=== PATIENT | male | born 1965 | race Caucasian/White ===

== ENCOUNTER 2025-05-26 08:42 | Outpatient (CLI) | payer BC, SELFPAY ==
--- NOTE | 2025-05-26 10:02 | P.ANES_ITS ---
Anesthesia Charges Start Date/Time Anesthesia Start Date: 05/26/25 Anesthesia Start Time: 09:37 Stop Date/Time Anesthesia Stop Date: 05/26/25 Anesthesia Stop Time: 10:01 Coding CPT Codes CPT Codes: MADDIE LWR INTST NDSC NOS - [id number] ([id number]) P2 - PATIENT W/MILD SYST DISEASE, QK - DISINTEGRATOR 2-4 CNCRNT ANES PROC, QX - DIRECTOR OF ENTERPRISE STRATEGY SVC W/ MD MED DIRECTION
--- NOTE | 2025-05-26 10:02 | W.ANESCHARGE ---
Anesthesia Charges Start Date/Time Anesthesia Start Date: 05/26/25 Anesthesia Start Time: 09:37 Stop Date/Time Anesthesia Stop Date: 05/26/25 Anesthesia Stop Time: 10:01 Coding CPT Codes CPT Codes: MADDIE LWR INTST NDSC NOS - [id number] ([id number]) P2 - PATIENT W/MILD SYST DISEASE, QK - STORE OPERATIONS MANAGER 2-4 CNCRNT ANES PROC, QX - TUFTING SUPERVISOR SVC W/ MD MED DIRECTION
--- NOTE | 2025-05-26 10:30 | W.ANESCHARGE ---
Anesthesia Charges Start Date/Time Anesthesia Start Date: 05/26/25 Anesthesia Start Time: 09:37 Stop Date/Time Anesthesia Stop Date: 05/26/25 Anesthesia Stop Time: 10:01 Coding CPT Codes CPT Codes: MADDIE LWR INTST NDSC NOS - [id number] ([id number]) P2 - PATIENT W/MILD SYST DISEASE, QK - MOLD CLEANER 2-4 CNCRNT ANES PROC, QX - SQL TECH SVC W/ MD MED DIRECTION
--- NOTE | 2025-05-26 10:30 | P.ANES_ITS ---
Anesthesia Charges Start Date/Time Anesthesia Start Date: 05/26/25 Anesthesia Start Time: 09:37 Stop Date/Time Anesthesia Stop Date: 05/26/25 Anesthesia Stop Time: 10:01 Coding CPT Codes CPT Codes: MADDIE LWR INTST NDSC NOS - [id number] ([id number]) P2 - PATIENT W/MILD SYST DISEASE, QK - DYE STAND LOADER 2-4 CNCRNT ANES PROC, QX - BINDERY MACHINE SETTER SVC W/ MD MED DIRECTION
== END 2025-05-26 08:43 | disposition home or self-care (01) ==
LOC: OP CLINIC 08:48
PROVIDERS: PCP Family Medicine; Visit Provider Internal Medicine
DX: Z12.11 Encounter for screening for malignant neoplasm of colon (principal); Z86.0101 Personal history of adenomatous and serrated colon polyps; D12.2 Benign neoplasm of ascending colon; D12.3 Benign neoplasm of transverse colon; K64.8 Other hemorrhoids; K57.30 Diverticulosis of large intestine without perforation or abscess without bleeding; A63.0 Anogenital (venereal) warts
CPT/HCPCS: 00811; 00812; 45385; 88305; J2704